=== PATIENT | male | born 1965 | race Caucasian/White ===

== ENCOUNTER 2016-07-01 10:12 | Inpatient (IN) | payer BC, OTHER ==
--- NOTE | 2016-07-01 10:28 | ED ---
General Adult HPI - General Chief complaint: Chest Pain Stated complaint: chest pain Time Seen by Provider: 07/01/16 10:22 Source: patient, RN notes reviewed, old records reviewed Mode of arrival: ambulatory Limitations: no limitations - History of Present Illness Initial comments: This is a 50-year-old male the ER for evaluation of chest pain. Patient with left-sided chest pain started yesterday worse today with nausea left shoulder pain and shortness of breath. Diaphoresis. Patient has history of smoking and positive family history of heart disease. No recent travel history or sick contacts, no prior cardiac evaluation, worse with activity better with rest. - Related Data Home Medications Medication Instructions Recorded Confirmed Atorvastatin [Lipitor] 10 mg PO DAILY 07/01/16 07/01/16 HYDROcodone/APAP 5-325MG [[place] 5] 1 tab PO DAILY PRN 07/01/16 07/01/16 Lisinopril [Zestril] 10 mg PO DAILY 07/01/16 07/01/16 Allergies Allergy/AdvReac Type Severity Reaction Status Date / Time No Known Allergies Allergy Verified 07/01/16 11:16 Review of Systems ROS Statement: Those systems with pertinent positive or pertinent negative responses have been documented in the HPI. ROS Other: All systems not noted in ROS Statement are negative. Past Medical History Past Medical History: No Reported History History of Any Multi-Drug Resistant Organisms: None Reported Past Surgical History: Orthopedic Surgery Additional Past Surgical History / Comment(s): RIGHT HAND Past Psychological History: No Psychological Hx Reported Smoking Status: Current every day smoker Past Alcohol Use History: Occasional, Rare Past Drug Use History: None Reported General Exam Limitations: no limitations General appearance: alert, in no apparent distress, anxious Head exam: Present: atraumatic, normocephalic, normal inspection Eye exam: Present: normal appearance, PERRL, EOMI. Absent: scleral icterus, conjunctival injection, periorbital swelling ENT exam: Present: normal exam, mucous membranes moist Neck exam: Present: normal inspection. Absent: tenderness, meningismus, lymphadenopathy Respiratory exam: Present: normal lung sounds bilaterally. Absent: respiratory distress, wheezes, rales, rhonchi, stridor Cardiovascular Exam: Present: regular rate, normal rhythm, normal heart sounds. Absent: systolic murmur, diastolic murmur, rubs, gallop, clicks GI/Abdominal exam: Present: soft, normal bowel sounds. Absent: distended, tenderness, guarding, rebound, rigid Extremities exam: Present: normal inspection, full ROM, normal capillary refill. Absent: tenderness, pedal edema, joint swelling, calf tenderness Back exam: Present: normal inspection Neurological exam: Present: alert, oriented X3, CN II-XII intact Psychiatric exam: Present: normal affect, normal mood Skin exam: Present: warm, dry, intact, normal color. Absent: rash Course Vital Signs 07/01/16 07/01/16 07/01/16 10:17 10:25 10:27 Temperature 96.7 F L Pulse Rate 67 67 Pulse Rate [ 67 Supervisor Case Loading ] Respiratory 20 20 Rate Blood Pressure 211/95 191/89 O2 Sat by Pulse 100 100 Oximetry 07/01/16 07/01/16 07/01/16 11:23 11:40 11:43 Temperature Pulse Rate 59 L 58 L Pulse Rate [ Supervisor Case Loading ] Respiratory 18 18 Rate Blood Pressure 168/77 95/46 108/51 O2 Sat by Pulse 99 100 Oximetry 07/01/16 11:52 Temperature Pulse Rate 47 L Pulse Rate [ Supervisor Case Loading ] Respiratory 16 Rate Blood Pressure 111/57 O2 Sat by Pulse 100 Oximetry - Reevaluation(s) Reevaluation #1: 07/01/16 12:51 Patient still a chest pain EKG Findings - EKG Comments: EKG Findings:: EKG shows normal sinus rhythm rate of 69, UT 138, QRS 80, QTC 407 Medical Decision Making - Medical Decision Making 50 mallei are fevers or chest pain, positive cardiac risk, [place] cardiac evaluation and treatment, anticoagulations first troponin EKG and negative. - Lab Data Result diagrams: 07/01/16 10:20 07/01/16 10:20 Lab Results 07/01/16 07/01/16 07/01/16 Range/Units 10:20 10:20 10:20 WBC 11.6 H (3.8-10.6) k/uL RBC 4.80 (4.30-5.90) m/uL Hgb 14.8 (13.0-17.5) gm/dL Hct 43.5 (39.0-53.0) % MCV 90.6 (80.0-100.0) fL MCH 30.9 (25.0-35.0) pg MCHC 34.1 (31.0-37.0) g/dL RDW 12.8 (11.5-15.5) % Plt Count 354 (150-450) k/uL Neutrophils % 73 % Lymphocytes % 17 % Monocytes % 5 % Eosinophils % 3 % Basophils % 1 % Neutrophils # 8.4 H (1.3-7.7) k/uL Lymphocytes # 2.0 (1.0-4.8) k/uL Monocytes # 0.6 (0-1.0) k/uL Eosinophils # 0.3 (0-0.7) k/uL Basophils # 0.1 (0-0.2) k/uL PT (9.0-12.0) sec INR (<1.1) APTT (22.0-30.0) sec Sodium 144 (137-145) mmol/L Potassium 3.8 (3.5-5.1) mmol/L Chloride 103 (98-107) mmol/L Carbon Dioxide 28 (22-30) mmol/L Anion Gap 13 mmol/L BUN 9 (9-20) mg/dL Creatinine 0.80 (0.66-1.25) mg/dL Est GFR (MDRD) Af Amer >60 (>60 ml/min/1.73 sqM) Est GFR (MDRD) Non-Af >60 (>60 ml/min/1.73 sqM) Glucose 130 H (74-99) mg/dL Calcium 9.6 (8.4-10.2) mg/dL Magnesium 1.9 (1.6-2.3) mg/dL Total Bilirubin 0.5 (0.2-1.3) mg/dL AST 23 (17-59) U/L ALT 35 (21-72) U/L Alkaline Phosphatase 93 (38-126) U/L Total Creatine Kinase 85 (55-170) U/L CK-MB (CK-2) 0.6 (0.0-2.4) ng/mL CK-MB (CK-2) Rel Index 0.7 Troponin I <0.012 (0.000-0.034) ng/mL NT-Pro-B Natriuret Pep pg/mL Total Protein 7.1 (6.3-8.2) g/dL Albumin 4.3 (3.5-5.0) g/dL Lipase 86 (23-300) U/L 02/02/17 02/02/17 Range/Units 10:20 10:20 WBC (3.8-10.6) k/uL RBC (4.30-5.90) m/uL Hgb (13.0-17.5) gm/dL Hct (39.0-53.0) % MCV (80.0-100.0) fL MCH (25.0-35.0) pg MCHC (31.0-37.0) g/dL RDW (11.5-15.5) % Plt Count (150-450) k/uL Neutrophils % % Lymphocytes % % Monocytes % % Eosinophils % % Basophils % % Neutrophils # (1.3-7.7) k/uL Lymphocytes # (1.0-4.8) k/uL Monocytes # (0-1.0) k/uL Eosinophils # (0-0.7) k/uL Basophils # (0-0.2) k/uL PT 10.5 (9.0-12.0) sec INR 1.0 (<1.1) APTT 26.2 (22.0-30.0) sec Sodium (137-145) mmol/L Potassium (3.5-5.1) mmol/L Chloride (98-107) mmol/L Carbon Dioxide (22-30) mmol/L Anion Gap mmol/L BUN (9-20) mg/dL Creatinine (0.66-1.25) mg/dL Est GFR (MDRD) Af Amer (>60 ml/min/1.73 sqM) Est GFR (MDRD) Non-Af (>60 ml/min/1.73 sqM) Glucose (74-99) mg/dL Calcium (8.4-10.2) mg/dL Magnesium (1.6-2.3) mg/dL Total Bilirubin (0.2-1.3) mg/dL AST (17-59) U/L ALT (21-72) U/L Alkaline Phosphatase (38-126) U/L Total Creatine Kinase (55-170) U/L CK-MB (CK-2) (0.0-2.4) ng/mL CK-MB (CK-2) Rel Index Troponin I (0.000-0.034) ng/mL NT-Pro-B Natriuret Pep 60 pg/mL Total Protein (6.3-8.2) g/dL Albumin (3.5-5.0) g/dL Lipase (23-300) U/L - Radiology Data Radiology results: report reviewed (CXR is negative for acute disease), image reviewed Critical Care Time Critical Care Time: Yes Total Critical Care Time: 31 Disposition Clinical Impression: Chest pain Disposition: ADMITTED IP TO THIS [facility] Condition: Fair Referrals: Raymundo Ohara MD [Primary Care Provider] - 1-2 days
[2016-07-01] MEDS ORDERED: SODIUM CHLORIDE 0.9% 1,000 ML IV STA (10:31)
[2016-07-01 10:49] LABS: Basophils # (A) 0.1 k/uL (0-0.2); Basophils % (A) 1 %; CH 31.4; CHCM 34.8; Eosinophils # (A) 0.3 k/uL (0-0.7); Eosinophils % (A) 3 %; HCT 43.5 % (39.0-53.0); HDW 2.64; HGB 14.8 gm/dL (13.0-17.5); Luc # (Auto) 0.16; Luc % (Auto) 1; Lymphocytes % (A) 17 %; MCH 30.9 pg (25.0-35.0); MCHC 34.1 g/dL (31.0-37.0); MCV 90.6 fL (80.0-100.0); Mean Platelet Volume 6.4; Monocytes # (A) 0.6 k/uL (0-1.0); Monocytes % (A) 5 %; Neutrophils # (A) 8.4 k/uL (1.3-7.7); Neutrophils % (A) 73 %; RDW 12.8 % (11.5-15.5); WBC 11.6 k/uL (3.8-10.6); WBC (Perox) 11.99
[2016-07-01 10:59] LABS: Partial Thromboplastin Time 26.2 sec (22.0-30.0); Prothrombin Time 10.5 sec (9.0-12.0)
[2016-07-01 11:05] LABS: ALT 35 U/L (21-72); AST 23 U/L (17-59); Alkaline Phosphatase 93 U/L (38-126); Anion Gap 13 mmol/L; Blood Urea Nitrogen 9 mg/dL (9-20); Calcium 9.6 mg/dL (8.4-10.2); Carbon Dioxide 28 mmol/L (22-30); Chloride 103 mmol/L (98-107); Glucose 130 mg/dL (74-99); Magnesium 1.9 mg/dL (1.6-2.3); Non-African American GFR(MDRD) >60 (>60 ml/min/1.73 sqM); Potassium 3.8 mmol/L (3.5-5.1); Sodium 144 mmol/L (137-145); Total Bilirubin 0.5 mg/dL (0.2-1.3); Total Protein 7.1 g/dL (6.3-8.2)
[2016-07-01 11:12] LABS: Creatine Kinase 85 U/L (55-170)
--- NOTE | 2016-07-01 11:18 | XR ---
EXAMINATION TYPE: XR chest 2V DATE OF EXAM: 07/01/2016 10:58 AM COMPARISON: NONE HISTORY: Chest pain TECHNIQUE: Frontal and lateral views of the chest are obtained. FINDINGS: There are overlying cardiac leads. Patient is rotated. Heart size may be accentuated by ro tation. No pneumothorax or pleural effusion. 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 IMPRESSION: No acute cardiopulmonary process.
[2016-07-01] MEDS ORDERED: NITROGLYCERIN SL TABS 0.4 MG TAB SUBLINGUAL STA (11:26)
[2016-07-01 11:27] LABS: Creatine Kinase MB 0.6 ng/mL (0.0-2.4); Troponin I <0.012 ng/mL (0.000-0.034)
[2016-07-01] MEDS ORDERED: ONDANSETRON 4 MG/2 ML VIAL IVP STA (11:48)
[2016-07-01] MEDS ORDERED: HEPARIN SODIUM,PORCINE 5,000 UNIT/ML 1 ML VIAL IV ONE (12:48)
[2016-07-01] MEDS ORDERED: HEPARIN SODIUM,PORCINE 5,000 UNIT/ML 1 ML VIAL IV PRN (12:48)
[2016-07-01] MEDS ORDERED: NITROGLYCERIN SL TABS 0.4 MG TAB SUBLINGUAL PRN (12:48)
[2016-07-01] MEDS ORDERED: ASPIRIN 81 MG CHEW PO STA (12:48)
[2016-07-01] MEDS: SODIUM CHLORIDE 0.9% 1,000 ML IV SCH ×2 (13:10→20:21)
[2016-07-01] MEDS: HEPARIN SODIUM,PORCINE/D5W PMX 25,000 UNIT in DEXTROSE/WATER 1 500ML.BAG IV SCH ×2 (13:13→20:19)
[2016-07-01 17:42] LABS: Creatine Kinase MB 49.5 ng/mL (0.0-2.4)
[2016-07-01 17:43] LABS: Troponin I 20.8 ng/mL (0.000-0.034)
[2016-07-01] MEDS ORDERED: HYDROcodone/APAP 5-325MG 1 EACH TAB PO PRN (19:11)
[2016-07-02 04:01] LABS: Mean Platelet Volume 7.3
[2016-07-02 04:11] LABS: Cholesterol 128 mg/dL (<200); HDL Cholesterol 44 mg/dL (40-60); Triglycerides 104 mg/dL (<150)
[2016-07-02] MEDS: HEPARIN SODIUM,PORCINE/D5W PMX 25,000 UNIT in DEXTROSE/WATER 1 500ML.BAG IV SCH ×2 (04:25→08:38)
[2016-07-02 04:41] LABS: Creatine Kinase MB 28.7 ng/mL (0.0-2.4); Troponin I 15.1 ng/mL (0.000-0.034)
[2016-07-02] MEDS ORDERED: METOPROLOL TARTRATE 25 MG TAB PO STA (08:20)
[2016-07-02] MEDS ORDERED: ASPIRIN 325 MG TAB PO STA (08:31)
[2016-07-02] MEDS ORDERED: NITROGLYCERIN SL TABS 0.4 MG TAB SUBLINGUAL PRN ×2 (08:31→13:00)
[2016-07-02] MEDS ORDERED: ALPRAZolam 0.25 MG TAB PO PRN (08:31)
[2016-07-02] MEDS ORDERED: ALPRAZolam 0.5 MG TAB PO PRN (08:31)
[2016-07-02] MEDS ORDERED: ATORVASTATIN 80 MG TAB PO STA (08:31)
[2016-07-02] MEDS ORDERED: SODIUM CHLORIDE 0.9% 1,000 ML in EMPTY BAG 1 BAG IV ONE (08:31)
--- NOTE | 2016-07-02 08:32 | P.CRDCN ---
<Dilia Richard E - Last Filed: 07/02/16 08:21> History of Present Illness Consult date: 07/02/16 Requesting physician: Roland Laughlin Consult reason: non-Q-wave [place] Chief complaint: Chest pain History of present illness: This is a pleasant 50-year-old gentleman with history of hypertension , hyperlipidemia, nicotine dependence, strong family history of premature coronary artery disease, who presented to the hospital with symptoms of midsternal chest pressure and heaviness with radiation to bilateral arms, positive associated shortness of breath, diaphoresis, nausea and an episode of vomiting. Patient states he had mild symptoms the day before yesterday which subsided and seconds, yesterday upon wakening, were when these symptoms started. Initial EKG performed showed a normal sinus rhythm with lateral ST depression and minimal inferior ST changes. Chest x-ray did not reveal any acute process. Laboratory data was reviewed, troponin on presentation 0.012, subsequent troponins 20.8, 24, 15.1. Potassium 3.8, BUN 9, creatinine 0.8, magnesium level I.9. WBC 11.6, platelet count 244. Blood pressure on presentation here to 11/95, heart rate in the 60s, 100% on room air. I pressure this morning 143/74, heart rate in the 70s, 97% on room air. This morning on the monitor patient is in a normal sinus rhythm, he has a noted run of 6 nonsustained ventricular tachycardia. He is currently on IV heparin, pain- free at this time. Past Medical History Past Medical History: Hyperlipidemia, Hypertension Additional Past Medical History / Comment(s): Past back pain, R hand fx with surgical repair-difficulty healing. History of Any Multi-Drug Resistant Organisms: None Reported Past Surgical History: Orthopedic Surgery Additional Past Surgical History / Comment(s): RIGHT HAND surgery x 2 and will likely need a third surgery. Past Anesthesia/Blood Transfusion Reactions: No Reported Reaction Past Psychological History: No Psychological Hx Reported Additional Psychological History / Comment(s): Pt resides with his spouse. The have 3 dogs. Pt is independent. Smoking Status: Current every day smoker Past Alcohol Use History: Rare Additional Past Alcohol Use History / Comment(s): Pt. started smoking in 1981 and is between a pack and alittle more than a ppd smoker depending on the day. Past Drug Use History: None Reported - Past Family History Father Family Medical History: COPD Additional Family Medical History / Comment(s): Father is 74 yrs old. Mother Family Medical History: COPD, Renal Disease Additional Family Medical History / Comment(s): Mother is . Medications and Allergies Home Medications Medication Instructions Recorded Confirmed Type Atorvastatin [Lipitor] 10 mg PO DAILY 07/01/16 07/01/16 History HYDROcodone/APAP 5-325MG [[place] 5] 1 tab PO DAILY PRN 07/01/16 07/01/16 History Lisinopril [Zestril] 10 mg PO DAILY 07/01/16 07/01/16 History Allergies Allergy/AdvReac Type Severity Reaction Status Date / Time No Known Allergies Allergy Verified 07/01/16 11:16 Physical Exam Vitals: Vital Signs Temp Pulse Pulse Resp BP BP Pulse Ox 07/02/16 08:00 96.0 F L 68 18 143/74 97 07/02/16 04:00 70 16 141/73 98 07/02/16 00:00 98.2 F 66 16 172/80 98 07/01/16 20:00 98.1 F 66 16 146/70 97 07/01/16 14:29 98 07/01/16 13:50 98.0 F 62 18 147/66 97 07/01/16 13:16 67 14 134/68 98 Intake and Output 07/01/16 07/02/16 07/02/16 22:59 06:59 14:59 Intake Total 1099.089 199.665 Balance 1099.089 199.665 Intake: IV 160 Heparin Sodium,Porcine/ 160 D5w Pmx 25,000 unit In Dextrose/Water 1 500ml. bag @ 12 UNITS/KG/HR 19. 59 mls/hr IV .Q24H MARY LOU Rx #:[id number] Intake, IV Titration 939.089 199.665 Amount Heparin Sodium,Porcine/ 139.089 199.665 D5w Pmx 25,000 unit In Dextrose/Water 1 500ml. bag @ 12 UNITS/KG/HR 19. 59 mls/hr IV .Q24H MARY LOU Rx #:[id number] Sodium Chloride 0.9% 1, 800 000 ml @ 100 mls/hr IV . Q10H MARY LOU Rx#:[id number] Other: Voiding Method Toilet Toilet # Voids 1 Weight 81.7 kg PHYSICAL EXAMINATION: HEENT: [Head is atraumatic, normocephalic. Pupils equal, round. Neck is supple. There is no elevated jugular venous pressure.] HEART EXAMINATION: [Heart S1, S2 normal. No murmur or gallop heard.] CHEST EXAMINATION:[ Lungs are clear to auscultation and precussion. No chest wall tenderness is noted on palpation or with deep breathing.] ABDOMEN: [ Soft, nontender. Bowel sounds are heard. No organomegaly noted]. EXTREMITIES:[ 2+ peripheral pulses with no evidence of peripheral edema and no calf tenderness noted]. NEUROLOGIC [patient is awake, alert and oriented -3.] . Results 07/02/16 03:44 07/01/16 10:20 Cardiac Enzymes 07/01/16 07/01/16 07/02/16 Range/Units 16:24 22:00 03:50 CK-MB (CK-2) 49.5 H* 46.0 H* 28.7 H* (0.0-2.4) ng/mL Troponin I 20.800 H* 24.000 H* 15.100 H* (0.000-0.034) ng/mL Coagulation 07/01/16 07/02/16 Range/Units 19:19 03:44 APTT 35.9 H 39.4 H (22.0-30.0) sec Lipids 07/02/16 Range/Units 03:44 Triglycerides 104 (<150) mg/dL Cholesterol 128 (<200) mg/dL HDL Cholesterol 44 (40-60) mg/dL CBC 07/02/16 Range/Units 03:44 Plt Count 244 (150-450) k/uL Current Medications Generic Name Dose Route Start Last Admin Trade Name Freq PRN Reason Stop Dose Admin Acetaminophen/Hydrocodone Bitart 1 each 07/01/16 19:11 [place] 5-325 PO DAILY PRN Pain Aspirin 325 mg 07/02/16 09:00 Aspirin PO DAILY [facility] Atorvastatin Calcium 80 mg 07/02/16 09:00 Lipitor PO DAILY MARY LOU Heparin Sodium (Porcine) 0 unit 07/01/16 12:48 Heparin IV Q6HR PRN Low PTT Protocol Heparin Sodium/Dextrose 25,000 500 mls @ 19.59 mls/hr 07/01/16 13:00 04:25 unit/ IV Solution IV 18.1 units/kg/hr .Q24H MARY LOU 29.55 mls/hr Protocol Administration 12 UNITS/KG/HR Sodium Chloride 1,000 mls @ 100 mls/hr 07/01/16 13:00 07/01/16 20:21 Saline 0.9% IV 100 mls/hr .Q10H MARY LOU Administration Lisinopril 10 mg 07/02/16 09:00 Zestril PO DAILY MARY LOU Metoprolol Tartrate 25 mg 07/02/16 08:20 Lopressor PO 07/02/16 08:21 ONCE STA Nitroglycerin 0.4 mg 07/01/16 12:48 Nitrostat SUBLINGUAL Q5M PRN Chest Pain Intake and Output 07/01/16 07/02/16 07/02/16 22:59 06:59 14:59 Intake Total 1099.089 199.665 Balance 1099.089 199.665 Intake: IV 160 Heparin Sodium,Porcine/ 160 D5w Pmx 25,000 unit In Dextrose/Water 1 500ml. bag @ 12 UNITS/KG/HR 19. 59 mls/hr IV .Q24H MARY LOU Rx #:[id number] Intake, IV Titration 939.089 199.665 Amount Heparin Sodium,Porcine/ 139.089 199.665 D5w Pmx 25,000 unit In Dextrose/Water 1 500ml. bag @ 12 UNITS/KG/HR 19. 59 mls/hr IV .Q24H MARY LOU Rx #:[id number] Sodium Chloride 0.9% 1, 800 000 ml @ 100 mls/hr IV . Q10H MARY LOU Rx#:[id number] Other: Voiding Method Toilet Toilet # Voids 1 Weight 81.7 kg 07/02/16 03:44 EKG Interpretations (text) EKG shows normal sinus rhythm with lateral ST depression and a minimal ST changes in the inferior leads Assessment and Plan Plan: Assessment and plan #1 non-ST elevation myocardial infarction, patient is currently on IV heparin, aspirin, Lipitor 80 has been given. #2 hypertension, but pressure on arrival 211/95, 143/70 this morning. #3 hyperlipidemia #4 nicotine dependence #5 family history of premature coronary artery disease in his father. Plan We will continue IV heparin, aspirin, Lipitor, lisinopril, and Lopressor . Stat echocardiogram with Doppler study has been requested. Patient has also been advised to undergo cardiac catheterization, the risks and benefits were explained to the patient and his in detail and he is in agreement to proceed. DNP note has been reviewed, I agree with a documented findings and plan of care. Patient was seen and examined. <Christopher Mendes - Last Filed: 07/02/16 09:40> Physical Exam Vitals: Vital Signs Temp Pulse Pulse Resp BP BP Pulse Ox 07/02/16 08:52 96.0 F L 68 18 143/74 97 07/02/16 08:00 96.0 F L 68 18 143/74 97 07/02/16 04:00 70 16 141/73 98 07/02/16 00:00 98.2 F 66 16 172/80 98 07/01/16 20:00 98.1 F 66 16 146/70 97 07/01/16 14:29 98 07/01/16 13:50 98.0 F 62 18 147/66 97 07/01/16 13:16 67 14 134/68 98 Intake and Output 07/01/16 07/02/16 07/02/16 22:59 06:59 14:59 Intake Total 1099.089 199.665 124.603 Balance 1099.089 199.665 124.603 Intake: IV 160 Heparin Sodium,Porcine/ 160 D5w Pmx 25,000 unit In Dextrose/Water 1 500ml. bag @ 12 UNITS/KG/HR 19. 59 mls/hr IV .Q24H MARY LOU Rx #:[id number] Intake, IV Titration 939.089 199.665 124.603 Amount Heparin Sodium,Porcine/ 139.089 199.665 124.603 D5w Pmx 25,000 unit In Dextrose/Water 1 500ml. bag @ 12 UNITS/KG/HR 19. 59 mls/hr IV .Q24H MARY LOU Rx #:[id number] Sodium Chloride 0.9% 1, 800 000 ml @ 100 mls/hr IV . Q10H MARY LOU Rx#:[id number] Other: Voiding Method Toilet Toilet # Voids 1 Weight 81.7 kg Results 07/02/16 03:44 07/01/16 10:20 Cardiac Enzymes 07/01/16 07/01/16 07/02/16 Range/Units 16:24 22:00 03:50 CK-MB (CK-2) 49.5 H* 46.0 H* 28.7 H* (0.0-2.4) ng/mL Troponin I 20.800 H* 24.000 H* 15.100 H* (0.000-0.034) ng/mL Coagulation 07/01/16 07/02/16 Range/Units 19:19 03:44 APTT 35.9 H 39.4 H (22.0-30.0) sec Lipids 07/02/16 Range/Units 03:44 Triglycerides 104 (<150) mg/dL Cholesterol 128 (<200) mg/dL HDL Cholesterol 44 (40-60) mg/dL CBC 07/02/16 Range/Units 03:44 Plt Count 244 (150-450) k/uL Current Medications Generic Name Dose Route Start Last Admin Trade Name Freq PRN Reason Stop Dose Admin Acetaminophen/Hydrocodone Bitart 1 each 07/01/16 19:11 [place] 5-325 PO DAILY PRN Pain Alprazolam 0.25 mg 07/02/16 08:31 Xanax PO Q6HR PRN Mild Anxiety Alprazolam 0.5 mg 07/02/16 08:31 Xanax PO Q6HR PRN Moderate Anxiety Aspirin 325 mg 07/02/16 09:00 07/02/16 08:36 Aspirin PO Not Given DAILY [facility] Atorvastatin Calcium 80 mg 07/02/16 09:00 07/02/16 08:37 Lipitor PO Not Given DAILY [facility] Heparin Sodium (Porcine) 0 unit 07/01/16 12:48 Heparin IV Q6HR PRN Low PTT Protocol Heparin Sodium/Dextrose 25,000 500 mls @ 19.59 mls/hr 07/01/16 13:00 08:38 unit/ IV Solution IV 18.1 units/kg/hr .Q24H MARY LOU 29.55 mls/hr Protocol Administration 12 UNITS/KG/HR Sodium Chloride 1,000 mls @ 100 mls/hr 07/01/16 13:00 07/01/16 20:21 Saline 0.9% IV 100 mls/hr .Q10H MARY LOU Administration Lisinopril 10 mg 07/02/16 09:00 07/02/16 08:35 Zestril PO 10 mg DAILY MARY LOU Administration Nitroglycerin 0.4 mg 07/01/16 12:48 Nitrostat SUBLINGUAL Q5M PRN Chest Pain Intake and Output 07/01/16 07/02/16 07/02/16 22:59 06:59 14:59 Intake Total 1099.089 199.665 124.603 Balance 1099.089 199.665 124.603 Intake: IV 160 Heparin Sodium,Porcine/ 160 D5w Pmx 25,000 unit In Dextrose/Water 1 500ml. bag @ 12 UNITS/KG/HR 19. 59 mls/hr IV .Q24H MARY LOU Rx #:[id number] Intake, IV Titration 939.089 199.665 124.603 Amount Heparin Sodium,Porcine/ 139.089 199.665 124.603 D5w Pmx 25,000 unit In Dextrose/Water 1 500ml. bag @ 12 UNITS/KG/HR 19. 59 mls/hr IV .Q24H MARY LOU Rx #:[id number] Sodium Chloride 0.9% 1, 800 000 ml @ 100 mls/hr IV . Q10H MARY LOU Rx#:[id number] Other: Voiding Method Toilet Toilet # Voids 1 Weight 81.7 kg 07/02/16 03:44
[2016-07-02] MEDS: ATORVASTATIN 80 MG TAB PO SCH (08:37)
--- NOTE | 2016-07-02 08:48 | ECHOF ---
Referral Reason:OK MEASUREMENTS -------- HEIGHT: 177.8 cm WEIGHT: 81.7 kg BP: 141/73 RVIDd: 3.0 cm (< 3.3) IVSd: 1.3 cm (0.6 - 1.1) LVIDd: 4.5 cm (3.9 - 5.3) LVPWd: 1.1 cm (0.6 - 1.1) IVSs: 1.7 cm LVIDs: 3.3 cm LVPWs: 1.8 cm LA Diam: 3.3 cm (2.7 - 3.8) LAESV Index (A-L): 22.22 ml/m Ao Diam: 3.4 cm (2.0 - 3.7) AV Cusp: 2.5 cm (1.5 - 2.6) MV EXCURSION: 18.829 mm (> 18.000) MV EF SLOPE: 97 mm/s (70 - 150) EPSS: 0.9 cm MV E Evan: 1.15 m/s MV DecT: 221 ms MV A Evan: 0.83 m/s MV E/A Ratio: 1.39 RAP: 5.00 mmHg RVSP: 26.52 mmHg FINDINGS -------- Sinus rhythm. This was a technically good study. The left ventricular size is normal. There is mild concentric left ventricular hypertrophy. Overall left ventricular systolic function is mildly impaired with, an EF between 45 - 50 %. Basal inferior LV wall motion is hypokinetic. Basal inferoseptal LV wall motion is hypokinetic. The right ventricle is normal in size and function. The left atrium is normal in size. Normal LA size by volume 22+/-6 ml/m2. The right atrium is normal in size. The aortic valve is trileaflet and appears structurally normal. Mild mitral regurgitation is present. Trace tricuspid regurgitation present. Right ventricular systolic pressure is normal at < 35 mmHg. The pulmonic valve is normal. There is no pulmonic regurgitation present. The aortic root size is normal. The inferior vena cava is mildly dilated. There is no pericardial effusion. CONCLUSIONS -------- 1. Sinus rhythm. 2. The right atrium is normal in size. 3. The aortic valve is trileaflet and appears structurally normal. 4. Mild mitral regurgitation is present. 5. Trace tricuspid regurgitation present. 6. Right ventricular systolic pressure is normal at < 35 mmHg. 7. The pulmonic valve is normal. 8. The aortic root size is normal. 9. The inferior vena cava is mildly dilated. 10. There is no pericardial effusion. 11. This was a technically good study. 12. The left ventricular size is normal. 13. There is mild concentric left ventricular hypertrophy. 14. Overall left ventricular systolic function is mildly impaired with, an EF between 45 - 50 %. 15. Basal inferior LV wall motion is hypokinetic. 16. Basal inferoseptal LV wall motion is hypokinetic. 17. The right ventricle is normal in size and function. 18. Normal LA size by volume 22+/-6 ml/m2. FARM SUPERVISOR: Miriam Blakely RDCS
[2016-07-02] MEDS ORDERED: ASPIRIN 325 MG TAB PO SCH (09:00)
[2016-07-02] MEDS ORDERED: ATORVASTATIN 80 MG TAB PO SCH (09:00)
[2016-07-02] MEDS ORDERED: LISINOPRIL 10 MG TAB PO SCH (09:00)
[2016-07-02] MEDS ORDERED: ATORVASTATIN 10 MG TAB PO SCH (09:00)
--- NOTE | 2016-07-02 09:44 | P.PN ---
Progress Note - Text Shouldn't presenting with midsternal chest discomfort initially feeling like heartburn. He had this episode would is back and it lasted for a brief period and resolved spontaneously. Yesterday morning he woke up again and had the same feeling Twelve-lead ECG shows sinus rhythm with ST depression in the lateral precordial leads and high lateral leads The follow-up ECG shows normalization of these changes Elevated troponins with a downward trend consistent with recent myocardial injury 2-D echo shows preserved LV systolic function with inferior basal inferior septal hypokinesis, preliminary assessment Plan Aspirin statins Plavix and he was taken to the [facility] today. He is pain-free at this time
[2016-07-02] MEDS ORDERED: fentaNYL (PF) 50 MCG/ML 2 ML AMP ONE (10:18)
[2016-07-02] MEDS ORDERED: MIDAZOLAM 2 MG/2 ML VIAL ONE (10:19)
[2016-07-02] MEDS: MIDAZOLAM 2 MG/2 ML VIAL IV ONE ×2 (10:27→11:11)
[2016-07-02] MEDS ORDERED: fentaNYL (PF) 50 MCG/ML 2 ML AMP IV ONE (10:27)
[2016-07-02] MEDS ORDERED: IV FLUID CONTINUATION 1,000 ML IV ONE (10:28)
[2016-07-02] MEDS ORDERED: LIDOCAINE 2% INJ 20 MG/ML SQ ONE (10:31)
[2016-07-02] MEDS ORDERED: BIVALIRUDIN BOLUS 250 MG/50 ML IV ONE (11:30)
[2016-07-02] MEDS ORDERED: BIVALIRUDIN 250 MG in SODIUM CHLORIDE 0.9% 50 ML IV ONE (11:32)
[2016-07-02] MEDS ORDERED: PRASUGREL 10 MG TAB ONE (11:34)
[2016-07-02] MEDS ORDERED: PRASUGREL 10 MG TAB PO ONE (11:37)
--- NOTE | 2016-07-02 11:53 | CC ---
DATE OF SERVICE: INDICATION: Non-ST segment elevation [place]. PROCEDURE NOTE: After obtaining informed consent, left heart catheterization and coronary angiogram are performed via the right femoral artery using standard [place]ra catheters. Patient tolerated the procedure well without any obvious immediate complications. FINDINGS: 1. HEMODYNAMICS: Left ventricular end-diastolic pressure is 14 to 16 mm. There is no significant gradient across the aortic valve. 2. LEFT VENTRICULOGRAM: Left ventriculogram was not performed. 3. ANGIOGRAPHIC DATA: Left Main Coronary Artery: Left main coronary artery is a normal size vessel and is free of stenosis. It divides into left anterior descending coronary artery and circumflex coronary artery. LAD shows a long segment of narrowing involving the midportion with irregular ectatic changes at its worst it seems to be 80% stenosed. Circumflex coronary artery is free of stenosis. There is a high OM ( ) ramus intermedius that shows moderate area of stenosis. Right coronary artery is a large dominant vessel. The PLV branch shows a 95% stenosis. CONCLUSIONS: 1. A 95% stenosis involving the PLV branch. 2. An 80% stenosis involving left anterior descending coronary artery with irregular ectatic changes. PLAN: I am going to review angiographic data with Dr. Puente the on-call dice table person who will hopefully will revascularized both the LAD and right coronary artery. Patient's wall motion abnormalities in the inferior wall.
[2016-07-02] MEDS: NITROGLYCERIN 1000MCG/10ML SYRINGE INTRACORON ONE ×2 (11:55→12:25)
[2016-07-02] MEDS ORDERED: IOHEXOL 350 MG/ML 100 ML BOTTLE INTRATHECA ONE (12:41)
[2016-07-02] MEDS ORDERED: MAG HYDROX/AL HYDROX/SIMETH 30 ML CUP PO PRN (13:00)
[2016-07-02] MEDS ORDERED: RX INFO: IV CONTRAST WAS GIVEN 1 EACH MISC MISCELLANE PRN (13:00)
[2016-07-02] MEDS ORDERED: ZOLPIDEM 5 MG TAB PO PRN (13:00)
[2016-07-02] MEDS ORDERED: ATROPINE SULFATE 0.1 MG/ML 10ML SYRINGE IV PRN (13:00)
[2016-07-02] MEDS: SODIUM CHLORIDE 0.9% 1,000 ML IV SCH ×2 (13:00→19:13)
[2016-07-02] MEDS ORDERED: SODIUM CHLORIDE 0.9% 1,000 ML IV SCH (13:00)
--- NOTE | 2016-07-02 17:16 | HP ---
DATE OF ADMISSION: 07/02/2016 PRESENTING COMPLAINT: Chest pain. History of presenting complaint: A 50-year-old patient of Dr. Ohara whose chronic stable medical conditions include hypertension, hyperlipidemia, has been having sharp central chest pains for a couple days. Yesterday it became progressively worse and felt like a truck sitting on chest going down the left arm going down the throat, became short of breath, dizzy. Perspiring. Patient presented to the ER sometime by evening and troponin jumped up to 20.8. Patient did have a short six beat nonsustained V-tach run earlier. EKG showing lateral ST segment depression. Patient was taken to the cardiac lab assistant by Dr. Juancarlos Mobley and by intervention by Dr. Puente. Currently the patient lying in bed, chest pain free. REVIEW OF SYSTEMS: CONSTITUTIONAL: Tired. HEENT: None. RESPIRATORY: None. CARDIOVASCULAR: As above. GASTROINTESTINAL: None. GENITOURINARY: None. MUSCULOSKELETAL: None. Dermatologic: None. HEMATOLOGIC: None. LYMPHATIC: None. PSYCHIATRY: None. NEUROLOGICAL: None. Past medical history of hyperlipidemia, hypertension, right ( ) fracture with surgical repair. PAST SURGICAL HISTORY: As above. SOCIAL HISTORY: . The patient has been smoking a pack a day for about 24 years. 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 Family history of COPD, and father had a heart attack in his 50s. HOME MEDICATIONS: 1. Lisinopril 10 mg a day. 2. [place] 5 1 tablets p.o. daily p.r.n. 3. Lipitor 10 mg a day. On examination, temperature 96.6, pulse 55, respirations 18, blood pressure 150/74, pulse ox 98% on room air. GENERAL APPEARANCE: Average built, lying in bed not in distress. EYES: Pupils equal. Conjunctivae normal. HEENT: Oral cavity normal. NECK: JVD not raised. Mass not palpable. RESPIRATORY: Effort normal. LUNGS: Clear. CARDIOVASCULAR: First and second sounds normal. No edema. ABDOMEN: Soft, nontender. Liver and spleen not palpable. Dressing over the right groin. LYMPHATIC: No lymph nodes palpable in the neck and axillae. PSYCHIATRY: Alert and oriented x3. Mood and affect normal. NEUROLOGICAL: Pupils equal. Cranial grossly intact. Power and sensation grossly intact. White count 11.6, hemoglobin 14.8, potassium 3.8. Troponin less than 0.012, 20.8 and then 20.4 and ( ) 63. EKG shows ST segment changes. ASSESSMENT: 1. Acute non-ST elevation myocardial infarction. 2. Essential hypertension. 3. Hyperlipidemia. 4. Chronic nicotine dependence in a patient who is a smoker. PLAN: Patient is status post urgent coronary intervention, currently on aspirin, Effient, Lipitor. Patient was talked to about cessation of smoking and his . Questions were answered. Copy to Dr. Ohara.
[2016-07-02] MEDS: LISINOPRIL 10 MG TAB PO SCH (21:23)
[2016-07-02] MEDS: METOPROLOL TARTRATE 25 MG TAB PO SCH (21:23)
--- NOTE | 2016-07-02 21:50 | PTCA ---
DATE OF SERVICE: Mr. Cote is a 50-year-old male with known history of chronic tobacco use, who presented with symptoms of chest discomfort and had evidence of non-ST segment elevation myocardial infarction. In view of that he underwent cardiac catheterization by Dr. Mobley and was found to have critical stenosis involving the mid LAD and the mid right coronary artery. In view of that, recommendation was made regarding angioplasty and stenting. The procedure as well as risks and complications were discussed with the patient who is in full understanding and agreement. PROCEDURE: A 6 Cypriot FR4 guiding catheter was introduced into the system. After cannulating the left main a 0.014 balanced medium weight J-wire was advanced across the lesion of the LAD and positioned in the first diagonal branch. Subsequently a second 0.014 balanced medium weight J-wire was advanced and positioned in the distal LAD. Following that, the 2.5 x 12 mm Trek balloon was advanced and two inflations were done at maximum of 10 atmospheres. Following that, the balloon was removed and a 2.5 x 38 mm Xience Alpine stent was deployed, it was dilated at 14 atmospheres. After removing the balloon at 2.75 x 15 mm NC Trek balloon was advanced and multiple inflations maximum of 14 atmospheres were done. Following that, the balloon and the wire were withdrawn back in the guiding catheter. Images were obtained and repeated. Those images reveal stable successful stenting. At that point, the guiding catheter, the balloon and the guidewire were removed and a 6 Cypriot FR4 guiding catheter was introduced into the system. After cannulating the right coronary ostium a 0.014 balanced medium weight J-wire was advanced into the distal right coronary artery and a 2.0 x 12 mm Trek balloon was advanced and 2 inflations at 10 atmospheres were done. Following that, the balloon was removed and a 2.5 x 18 mm Xience Alpine stent was deployed, postdilated at 14 atmospheres. After removing the balloon, another 2.5 x 12 mm Xience Alpine stent was deployed proximal to the first one and it was dilated at 14 atmospheres. Inflation in the overlap segment was done. Following that, the balloon and the wire were withdrawn back in the guiding catheter. Images were obtained and repeated. Those images reveal stable successful stenting. Of note, the patient received Angiomax per protocol as well as oral loading dose of Effient. He had chest discomfort and EKG changes with the inflation that improved at the end of the procedure. RESULTS: 1. Successful stenting of the mid left anterior descending artery with reduction in stenosis from 80% to 0%. 2. Successful stenting of the mid distal right coronary artery with reduction in stenosis from 99% to 0%. RECOMMENDATION: Patient will be continued on aspirin, Effient, beta philippe, ORI inhibitor and statin. Importance of dual antiplatelet treatment as well as smoking cessation was discussed with the patient and his family who are in full understanding and agreement. MIKI
--- NOTE | 2016-07-02 21:52 | LTR ---
July 02, 2016 RE: AndreAmish ramos Dear Dr. Aquinovi: I had the pleasure of performing coronary angioplasty and stenting on Mr. oCte at [facility] on the june and a full copy of procedure note will be forwarded to you. In brief, he underwent successful stenting of the mid LAD and a mid right coronary artery using a drug-eluting stent. I am hopeful that this procedure will stabilize his status. Thank you again for allowing me to participate in his care. Please feel free to call for any questions. Sincerely, HALIMA MARTIN MD
[2016-07-03 06:27] LABS: Mean Platelet Volume 7.4
[2016-07-03] MEDS: SODIUM CHLORIDE 0.9% 1,000 ML IV SCH ×2 (06:28→15:33)
[2016-07-03 06:39] LABS: Anion Gap 8 mmol/L; Blood Urea Nitrogen 8 mg/dL (9-20); Calcium 8.9 mg/dL (8.4-10.2); Carbon Dioxide 29 mmol/L (22-30); Chloride 107 mmol/L (98-107); Glucose 100 mg/dL (74-99); Non-African American GFR(MDRD) >60 (>60 ml/min/1.73 sqM); Potassium 3.9 mmol/L (3.5-5.1); Sodium 144 mmol/L (137-145)
[2016-07-03] MEDS: ATORVASTATIN 80 MG TAB PO SCH (07:49)
[2016-07-03] MEDS: METOPROLOL TARTRATE 25 MG TAB PO SCH ×2 (07:49→21:37)
[2016-07-03] MEDS: ASPIRIN 81 MG CHEW PO SCH (07:49)
[2016-07-03] MEDS: LISINOPRIL 10 MG TAB PO SCH ×2 (07:50→21:37)
--- NOTE | 2016-07-03 10:41 | P.PN ---
Subjective Principal diagnosis: Non-STEMI This is a pleasant 50-year-old gentleman with history of hypertension , hyperlipidemia, nicotine dependence, strong family history of premature coronary artery disease, who presented to the hospital with non-Q-wave myocardial infarction. He was taken to the cardiac catheterization lab yesterday where he underwent heart cath by Dr. Mobley and subsequent angioplasty and stenting of the middle LAD and mid RCA by Dr. Levy. Patient was seen and examined this morning, denies any chest pain or difficulty in breathing. He's been up ambulating in the hallway without any difficulty. EKG from this morning shows a normal sinus rhythm with no changes from post-PCI. Lab data reviewed, creatinine 0.9. Echo cardiogram with Doppler study was performed which revealed an ejection fraction of 45-50% with basal inferior and inferior septal hypokinesia. The pressure running in the 160 systolic range. We will add Norvasc to his medication regime. Objective - Vital Signs Vital signs: Vital Signs Temp 97 F L 07/03/16 08:00 Pulse 70 07/03/16 08:00 Resp 16 07/03/16 08:00 BP 167/74 07/03/16 08:00 Pulse Ox 97 07/03/16 09:45 Intake & Output 07/02/16 07/03/16 07/03/16 18:59 06:59 18:59 Intake Total 93.2 700 236 Output Total 400 Balance -306.8 700 236 Weight 79 kg Intake: IV 93.2 700 Sodium Chloride 0.9% 1, 700 000 ml @ 100 mls/hr IV . Q10H [facility] Rx#:[id number] Oral 236 Output: Urine 400 Other: Voiding Method Toilet # Voids 1 # Bowel Movements 1 - Exam PHYSICAL EXAMINATION: HEENT: Head is atraumatic, normocephalic. Pupils equal, round. Neck is supple. There is no elevated jugular venous pressure. HEART EXAMINATION: Heart S1, S2 normal. No murmur or gallop heard. CHEST EXAMINATION: Lungs are clear to auscultation and precussion. No chest wall tenderness is noted on palpation or with deep breathing. ABDOMEN: Soft, nontender. Bowel sounds are heard. No organomegaly noted. Right groin soft, no evidence of any hematoma. EXTREMITIES: 2+ peripheral pulses with no evidence of peripheral edema and no calf tenderness noted. NEUROLOGIC patient is awake, alert and oriented -3. . - Labs CBC & Chem 7: 07/03/16 05:50 07/03/16 05:50 Labs: Abnormal Lab Results - Last 24 Hours (Table) 07/03/16 Range/Units 05:50 BUN 8 L (9-20) mg/dL Glucose 100 H (74-99) mg/dL Assessment and Plan Plan: Assessment and plan #1 non-ST elevation myocardial infarction, status post angioplasty and stent placement of the LAD and RCA. #2 hypertension, but pressure on arrival 211/95, 143/70 this morning. #3 hyperlipidemia #4 nicotine dependence #5 family history of premature coronary artery disease in his father. Plan Patient has been encouraged to be up ambulating in the hallway today. We will plan for possible discharge home in 24 hours if stable. Norvasc 10 mg daily will be added to his medication regime. DNP note has been reviewed, I agree with a documented findings and plan of care. Patient was seen and examined.
[2016-07-03] MEDS: amLODIPine 10 MG TAB PO SCH (11:27)
[2016-07-03] MEDS: PRASUGREL 10 MG TAB PO SCH (11:27)
[2016-07-04] MEDS: SODIUM CHLORIDE 0.9% 1,000 ML IV SCH ×2 (02:06→12:08)
[2016-07-04 06:13] LABS: Mean Platelet Volume 6.8
[2016-07-04] MEDS: ATORVASTATIN 80 MG TAB PO SCH (07:30)
[2016-07-04] MEDS: LISINOPRIL 10 MG TAB PO SCH (07:31)
[2016-07-04] MEDS: ASPIRIN 81 MG CHEW PO SCH (07:31)
[2016-07-04] MEDS: METOPROLOL TARTRATE 25 MG TAB PO SCH (07:31)
[2016-07-04 07:35] VITALS: RESP 14
[2016-07-04] MEDS: amLODIPine 10 MG TAB PO SCH (08:18)
[2016-07-04] MEDS: PRASUGREL 10 MG TAB PO SCH (08:18)
--- NOTE | 2016-07-04 09:52 | PN ---
DATE OF SERVICE: 07/03/2016 PRESENTING COMPLAINT: Chest pain. INTERVAL HISTORY: This patient presented with acute [place], status intervention, seen by me earlier today. Up and about in the hallway. No chest pain, shortness of breath. Feeling better, comfortable. Review of systems done for constitutional, cardiovascular, GI, pulmonary; relevant findings as above. Current medications are reviewed. On examination, temperature 97, pulse 56, respirations 16, blood pressure 163/77, pulse ox 96% on room air. GENERAL APPEARANCE: Lying in bed, comfortable. EYES: Pupils equal. Conjunctivae normal. NECK: JVD not raised. Mass not palpable. RESPIRATORY: Effort normal. Lungs are clear. CARDIOVASCULAR: First and second sounds normal. No edema. ABDOMEN: Soft, nontender. Liver and spleen not palpable. PSYCHIATRY: Alert and oriented x3. Mood and affect normal. INVESTIGATIONS: Potassium 3.9, LDL 53. ASSESSMENT: 1. Acute non-ST elevation myocardial infarction. 2. Essential hypertension, uncontrolled. 3. Hyperlipidemia. 4. Chronic nicotine dependence in a patient who is a smoker. PLAN: Norvasc has been added. The patient is doing better. Encouraged to ambulate.
--- NOTE | 2016-07-04 11:26 | PN ---
A 50-year-old gentleman who is admitted to hospital with acute non-ST segment elevation RI and underwent cardiac catheterization and angioplasty of LAD and right coronary artery. He is doing well and is free of symptoms and is eager to go home. Current medications include aspirin, Effient, Zestril, Lipitor and metoprolol. On exam, comfortable at rest. Vital signs are stable. There is no jugular venous distention. Chest exam reveals good air entry bilaterally. Heart exam reveals first and second heart sounds. No gallop. ASSESSMENT: Non-ST segment elevation myocardial infarction, status post two-vessel angioplasty. PLAN: Patient is doing well. She is on optimal medical therapy, stable to be discharged home.
[2016-07-04 12:15] VITALS: BP 127/63; PULSE 61; TEMP 97
--- NOTE | 2016-07-05 19:23 | DS ---
DATE OF ADMISSION: 07/02/2016 DATE OF DISCHARGE: 07/04/2016 FINAL DIAGNOSES: 1. Acute non-ST elevation myocardial infarction essential hypertension, uncontrolled on presentation. 2. Hyperlipidemia. 3. Chronic nicotine dependence. Patient is a smoker. PROCEDURE: Cardiac catheterization with Dr. Juancarlos Mobley and industrial tractor driver, Dr. Puente. HOSPITAL COURSE: This patient presented with acute non-ST elevation [place]. Patient had a successful stenting of the mid LAD and the mid distal RCA. On the day of discharge, patient up and about. No chest pain or shortness of breath. On exam, lungs are clear. CARDIOVASCULAR: First and second sounds normal. Care was discussed with the patient and . Smoking cessation was discussed. Patient LDL 63. 2-D echocardiogram showed EF of 45 to 50%. DISCHARGE MEDICATIONS: 1. [place] 5, 1 tablet p.o. daily p.r.n. 2. Aspirin 81 mg a day. 3. Lipitor 80 mg daily. 4. Zestril 10 mg p.o. b.i.d. 5. Lopressor 25 p.o. b.i.d. 6. Nitrostat 0.4 sublingual q.5 p.r.n. 7. Effient 10 mg p.o. daily. 8. Norvasc 10 mg p.o. daily. Follow up with Dr. Mendes in one week; follow up with Dr. Ohara in one week.
== END 2016-07-04 14:04 | disposition home or self-care (01) | DRG 247 ==
LOC: EC 10:12 → 3OBS 12:48 → 6SEL 19:47 → OBSVTOIN 07-02 10:23
PROVIDERS: ADMIT Hospitalist; ATTEND Hospitalist
PROC: B2151ZZ Fluoroscopy of Left Heart using Low Osmolar Contrast (ICD-10-PCS; 2016-07-02)
PROC: 027136Z Dilation of Coronary Artery, Two Arteries with Three Drug-eluting Intraluminal Devices, Percutaneous Approach (ICD-10-PCS; principal; 2016-07-02 10:00)
PROC: 4A023N7 Measurement of Cardiac Sampling and Pressure, Left Heart, Percutaneous Approach (ICD-10-PCS; 2016-07-02 10:00)
PROC: B2111ZZ Fluoroscopy of Multiple Coronary Arteries using Low Osmolar Contrast (ICD-10-PCS; 2016-07-02 10:00)
DX: I21.4 Non-ST elevation (NSTEMI) myocardial infarction (principal); I47.2 Ventricular tachycardia; E78.5 Hyperlipidemia, unspecified; I25.10 Atherosclerotic heart disease of native coronary artery without angina pectoris; I10 Essential (primary) hypertension; F17.200 Nicotine dependence, unspecified, uncomplicated; M54.9 Dorsalgia, unspecified; Z79.891 Long term (current) use of opiate analgesic; Z79.899 Other long term (current) drug therapy; Z87.81 Personal history of (healed) traumatic fracture; Z84.1 Family history of disorders of kidney and ureter; Z82.5 Family history of asthma and other chronic lower respiratory diseases; Z82.49 Family history of ischemic heart disease and other diseases of the circulatory system; Z71.6 Tobacco abuse counseling
CPT/HCPCS: 36415; 71020; 80048; 80053; 80061; 82550; 82553; 83690; 83735; 83880; 84484; 85025; 85049; 85610; 85730; 93005; 93306; 93458; 94760; 96361; 96365; 96366; 96375; 96376; 99291

== ENCOUNTER 2018-01-24 21:20 | Emergency (ER) | payer BC, OTHER ==
[2018-01-24 21:26] VITALS: PULSE 81; RESP 18; TEMP 98.1
[2018-01-24] MEDS ORDERED: DIPH,PERTUS(ACELL)TETVAC-LF 0.5 ML VIAL IM ONE (22:06)
--- NOTE | 2018-01-24 22:13 | ED ---
General Adult HPI - General Chief complaint: Wound/Laceration Stated complaint: toe lac Time Seen by Provider: 01/24/18 21:58 Source: patient, RN notes reviewed, old records reviewed Mode of arrival: ambulatory Limitations: no limitations - History of Present Illness Initial comments: 52-year-old male presents with injury to the right great toe. Patient was moving a toolbox, this fell striking his right toe. 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 Pain is isolated to the first toe on the right. No other injury reported. Patient's tetanus is not up-to-date. Patient is otherwise healthy. No blood thinners. - Related Data Home Medications Medication Instructions Recorded Confirmed Lisinopril [Zestril] 20 mg PO BID 01/24/18 01/24/18 Previous Rx's Medication Instructions Recorded Aspirin 81 mg PO DAILY #30 chew 07/03/16 Atorvastatin [Lipitor] 80 mg PO DAILY #30 tab 07/03/16 Metoprolol Tartrate [Lopressor] 25 mg PO BID #60 tab 07/03/16 amLODIPine [Norvasc] 10 mg PO DAILY #30 tab 07/03/16 Cephalexin [Keflex] 500 mg PO Q8HR #21 cap 01/24/18 Ibuprofen [Motrin] 600 mg PO Q8HR PRN #24 tab 01/24/18 Sulfamethox-Tmp 800-160Mg [Bactrim 1 tab PO Q12HR #14 tab 01/24/18 DS 800-160 mg] Allergies Allergy/AdvReac Type Severity Reaction Status Date / Time No Known Allergies Allergy Verified 01/24/18 21:32 Review of Systems ROS Statement: Those systems with pertinent positive or pertinent negative responses have been documented in the HPI. ROS Other: All systems not noted in ROS Statement are negative. Past Medical History Past Medical History: Hyperlipidemia, Hypertension Additional Past Medical History / Comment(s): Past back pain, R hand fx with surgical repair-difficulty healing. History of Any Multi-Drug Resistant Organisms: None Reported Past Surgical History: Orthopedic Surgery Additional Past Surgical History / Comment(s): RIGHT HAND surgery x 2 and will likely need a third surgery. Past Anesthesia/Blood Transfusion Reactions: No Reported Reaction Past Psychological History: No Psychological Hx Reported Smoking Status: Former smoker Past Alcohol Use History: Rare Past Drug Use History: None Reported - Past Family History Father Family Medical History: COPD Additional Family Medical History / Comment(s): Father is 74 yrs old. Mother Family Medical History: COPD, Renal Disease Additional Family Medical History / Comment(s): Mother is . General Exam Limitations: no limitations General appearance: alert, in no apparent distress Head exam: Present: atraumatic, normocephalic Eye exam: Present: normal appearance, PERRL ENT exam: Present: normal exam Neck exam: Present: normal inspection. Absent: tenderness, meningismus Respiratory exam: Present: normal lung sounds bilaterally. Absent: respiratory distress Cardiovascular Exam: Present: regular rate, normal rhythm Extremities exam: Present: normal capillary refill, other (nail avulsion to right great toe, laceration approximately 2 cm at the base of the nail. cap refill intact.) Course Vital Signs 01/24/18 21:24 Temperature 98.1 F Pulse Rate 81 Respiratory 18 Rate Blood Pressure 146/63 O2 Sat by Pulse 98 Oximetry Procedures - Laceration Laceration #1 Consent Obtained: verbal consent Time Out Performed: Yes Indication: laceration Site: foot Description: linear, irregular, clean Depth: simple, single layer Anesthesia Technique: local infiltration Pre-repair: irrigated extensively Type of Sutures: nylon Size of Sutures: 5-0 Number of Sutures: 2 Technique: simple, interrupted Patient Tolerated Procedure: well Medical Decision Making - Medical Decision Making 52-year-old male presents with crush injury to the right great toe. There is a laceration and nail avulsion. Tetanus is updated. This is soaked in Betadine and normal saline. Copiously irrigated. Nail is avulsed at the nail base however it is intact otherwise. It is sutured in place. There is one additional suture placed in medial laceration partial thickness on the medial surface of the distal phalanx great toe. X-ray obtained does show comminuted mildly displaced fracture of the distal phalanx. Patient is prescribed prophylactic antibiotics. He is given orthopedic follow-up. He will return for suture removal in approximately 10 days. He will pay close attention for signs of infection. Disposition Clinical Impression: Laceration, Phalanx fracture, foot Disposition: HOME SELF-CARE Condition: Good Prescriptions: Cephalexin [Keflex] 500 mg PO Q8HR #21 cap Ibuprofen [Motrin] 600 mg PO Q8HR PRN #24 tab PRN Reason: Pain Sulfamethox-Tmp 800-160Mg [Bactrim DS 800-160 mg] 1 tab PO Q12HR #14 tab Is patient prescribed a controlled substance at d/c from ED?: No Referrals: Raymundo Ohara MD [Primary Care Provider] - 1-2 days Terry Saez DO [Doctor of Osteopathic Medicine] - 1-2 days Time of Disposition: 22:56
--- NOTE | 2018-01-24 22:38 | XR ---
EXAM: XR Right Toe(s), 2 or More Views -right great toe CLINICAL HISTORY: Reason: Great toe. Dropped a toolbox on Right Great Toe TECHNIQUE: Frontal, lateral and oblique views of toe of the right foot. COMPARISON: No relevant prior studies available. FINDINGS: Bones/joints: Comminuted fracture involving terminal tuft of first distal phalanx with moderate displacement of multiple small distal fracture fragments. Soft tissues: Soft tissue swelling about the right great toe. No radiopaque foreign bodies identified. IMPRESSION: Comminuted, displaced fracture involving terminal tuft of first distal phalange.
[2018-01-24 23:16] VITALS: BP 153/70
== END 2018-01-24 23:16 | disposition home or self-care (01) ==
LOC: EC 21:20
DX: S92.421A Displaced fracture of distal phalanx of right great toe, initial encounter for closed fracture (principal); S91.211A Laceration without foreign body of right great toe with damage to nail, initial encounter; Z23 Encounter for immunization; I10 Essential (primary) hypertension; Z87.891 Personal history of nicotine dependence; Z79.899 Other long term (current) drug therapy; W20.8XXA Other cause of strike by thrown, projected or falling object, initial encounter
CPT/HCPCS: 12001; 90471; 90715; 99283

== ENCOUNTER 2019-05-23 15:38 | Emergency (ER) | payer OTHER ==
[2019-05-23 15:56] LABS: Glucose,Whole Blood 70 mg/dL (75-99)
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
== END 2019-05-23 19:06 | disposition expired ==
LOC: EC 15:38
DX: I49.01 Ventricular fibrillation (principal); I46.9 Cardiac arrest, cause unspecified; S31.114A Laceration without foreign body of abdominal wall, left lower quadrant without penetration into peritoneal cavity, initial encounter; S00.81XA Abrasion of other part of head, initial encounter; S00.01XA Abrasion of scalp, initial encounter; R14.0 Abdominal distension (gaseous); I10 Essential (primary) hypertension; I25.2 Old myocardial infarction; Z87.891 Personal history of nicotine dependence; Z79.899 Other long term (current) drug therapy; V21.4XXA Motorcycle driver injured in collision with pedal cycle in traffic accident, initial encounter; Y93.89 Activity, other specified; Y92.410 Unspecified street and highway as the place of occurrence of the external cause
CPT/HCPCS: 31500; 36415; 99291